=== PATIENT | female | born 1995 | race American Indian/Alaskan Native ===

== ENCOUNTER 2020-05-20 13:35 | Emergency (ER) | payer MEDICAID ==
[2020-05-20 14:11] VITALS: BP 145/79
--- NOTE | 2020-05-20 14:11 | Emergency Department Report ---
ED HPI - General Chief complaint: Vaginal Bleeding Stated complaint: 19 WKS BLEEDING Time Seen by Provider: 05/20/20 13:43 Source: patient Mode of arrival: Ambulatory Limitations: No Limitations - History of Present Illness Initial comments: This is a 24-year-old female that is currently about 18-19 weeks nontoxic, well nourished in appearance, no acute signs of distress presents to the ED with c/o of vaginal bleeding x1 day. Patient stated yesterday she noticed some spotting yesterday and today. Patient denies any abdominal or pelvic pain. Patient denies any vaginal discharge or foul odor. Patient denies any nausea, v omiting, chest pain, shortness of breathe, fever, chills, headache, stiff neck, numbness, tingling. Patient denies any urinary symptoms. Patient denies any allergies or PMH. Patient denies following up with a NUT ORCHARDIST. MD Complaint: vaginal bleeding -: days(s) Radiation: none Severity scale (0 -10): 0 Improves with: none Worsens with: none Associated symptoms: vaginal bleeding. denies: nausea/vomiting, vaginal discharge, abdominal pain, dysuria, headache, vision changes, malaise, dysparuenia, rash, seizure, shortness of breath, syncope, weakness Vaginal bleeding: light :: Yes Pre-fifi care: none - Related Data Previous Rx's Medication Instructions Recorded Last Taken Type Nitrofurantoin Tensas/M-Cryst 100 mg PO Q12HR #14 capsule 05/20/20 Unknown Rx [Macrobid CAP] 21/Iron Fu/Folic Acid 1 each PO DAILY #30 tablet 05/20/20 Unknown Rx [ Complete Caplet] Allergies Allergy/AdvReac Type Severity Reaction Status Date / Time No Known Allergies Allergy Verified 05/20/20 13:41 ED Review of Systems ROS: Stated complaint: 19 WKS BLEEDING Other details as noted in HPI Comment: All other systems reviewed and negative Constitutional: denies: chills, fever Eyes: denies: eye pain, eye discharge, vision change ENT: denies: ear pain, throat pain Respiratory: denies: cough, shortness of breath, wheezing Cardiovascular: denies: chest pain, palpitations Endocrine: no symptoms reported Gastrointestinal: denies: abdominal pain, nausea, diarrhea Genitourinary: abnormal menses. denies: urgency, dysuria, discharge Musculoskeletal: denies: back pain, joint swelling, arthralgia Skin: denies: rash, lesions Neurological: denies: headache, weakness, paresthesias Psychiatric: denies: anxiety, depression Hematological/Lymphatic: denies: easy bleeding, easy bruising ED Past Medical Hx - Social History Smoking Status: Never Smoker Substance Use Type: None - Medications Home Medications: Home Medications Medication Instructions Recorded Confirmed Last Taken Type Nitrofurantoin Tensas/M-Cryst 100 mg PO Q12HR #14 capsule 05/20/20 Unknown Rx [Macrobid CAP] 21/Iron Fu/Folic Acid 1 each PO DAILY #30 tablet 05/20/20 Unknown Rx [ Complete Caplet] ED Physical Exam - General Limitations: No Limitations General appearance: alert, in no apparent distress - Head Head exam: Present: atraumatic, normocephalic - Eye Eye exam: Present: normal appearance - Neck Neck exam: Present: normal inspection, full ROM - Respiratory Respiratory exam: Absent: respiratory distress - Cardiovascular Cardiovascular Exam: Present: regular rate - GI/Abdominal GI/Abdominal exam: Present: soft. Absent: distended, tenderness - Extremities Exam Extremities exam: Present: full ROM - Back Exam Back exam: Present: full ROM - Neurological Exam Neurological exam: Present: alert, oriented X3, normal gait - Psychiatric Psychiatric exam: Present: normal affect, normal mood - Skin Skin exam: Present: warm, dry, intact, normal color. Absent: rash ED Course Vital Signs 05/20/20 13:39 Temperature 98.7 F Pulse Rate 108 H Respiratory 20 Rate Blood Pressure 145/79 O2 Sat by Pulse 98 Oximetry Vital Signs 05/20/20 13:39 Temperature 98.7 F Pulse Rate 108 H Respiratory 20 Rate Blood Pressure 145/79 O2 Sat by Pulse 98 Oximetry - Reevaluation(s) Reevaluation #1: 05/20/20 14:11 Patient is speaking in full sentences with no signs of distress noted. ED Medical Decision Making - Lab Data Result diagrams: 05/20/20 14:16 Lab Results 05/20/20 05/20/20 05/20/20 Range/Units 14:16 14:16 14:41 WBC 9.0 (4.5-11.0) K/mm3 RBC 3.67 (3.65-5.03) M/mm3 Hgb 11.0 (10.1-14.3) gm/dl Hct 31.7 (30.3-42.9) % MCV 86 (79-97) fl MCH 30 (28-32) pg MCHC 35 H (30-34) % RDW 13.7 (13.2-15.2) % Plt Count 283 (140-440) K/mm3 Lymph % (Auto) 28.0 (13.4-35.0) % Tensas % (Auto) 5.6 (0.0-7.3) % Eos % (Auto) 2.3 (0.0-4.3) % Baso % (Auto) 1.0 (0.0-1.8) % Lymph # (Auto) 2.5 (1.2-5.4) K/mm3 Tensas # (Auto) 0.5 (0.0-0.8) K/mm3 Eos # (Auto) 0.2 (0.0-0.4) K/mm3 Baso # (Auto) 0.1 (0.0-0.1) K/mm3 Seg Neutrophils % 63.1 (40.0-70.0) % Seg Neutrophils # 5.7 (1.8-7.7) K/mm3 HCG, Quant 8664 H (0-4) mIU/mL Urine Color (Yellow) Urine Turbidity (Clear) Urine pH (5.0-7.0) Ur Specific Dustin (1.003-1.030) Urine Protein (Negative) mg/dL Urine Glucose (UA) (Negative) mg/dL Urine Ketones (Negative) mg/dL Urine Blood (Negative) Urine Nitrite (Negative) Urine Bilirubin (Negative) Urine Urobilinogen (<2.0) mg/dL Ur Leukocyte Esterase (Negative) Urine WBC (Auto) (0.0-6.0) /HPF Urine RBC (Auto) (0.0-6.0) /HPF U Epithel Cells (Auto) (0-13.0) /HPF Urine Bacteria (Auto) (Negative) /HPF Urine Mucus /HPF Blood Type O POSITIVE 05/20/20 Range/Units Unknown WBC (4.5-11.0) K/mm3 RBC (3.65-5.03) M/mm3 Hgb (10.1-14.3) gm/dl Hct (30.3-42.9) % MCV (79-97) fl MCH (28-32) pg MCHC (30-34) % RDW (13.2-15.2) % Plt Count (140-440) K/mm3 Lymph % (Auto) (13.4-35.0) % Tensas % (Auto) (0.0-7.3) % Eos % (Auto) (0.0-4.3) % Baso % (Auto) (0.0-1.8) % Lymph # (Auto) (1.2-5.4) K/mm3 Tensas # (Auto) (0.0-0.8) K/mm3 Eos # (Auto) (0.0-0.4) K/mm3 Baso # (Auto) (0.0-0.1) K/mm3 Seg Neutrophils % (40.0-70.0) % Seg Neutrophils # (1.8-7.7) K/mm3 HCG, Quant (0-4) mIU/mL Urine Color Yellow (Yellow) Urine Turbidity Slightly-cloudy (Clear) Urine pH 6.0 (5.0-7.0) Ur Specific Dustin 1.028 (1.003-1.030) Urine Protein 30 mg/dl (Negative) mg/dL Urine Glucose (UA) Neg (Negative) mg/dL Urine Ketones Neg (Negative) mg/dL Urine Blood Mod (Negative) Urine Nitrite Neg (Negative) Urine Bilirubin Neg (Negative) Urine Urobilinogen < 2.0 (<2.0) mg/dL Ur Leukocyte Esterase Mod (Negative) Urine WBC (Auto) 19.0 H (0.0-6.0) /HPF Urine RBC (Auto) 43.0 (0.0-6.0) /HPF U Epithel Cells (Auto) 5.0 (0-13.0) /HPF Urine Bacteria (Auto) 1+ (Negative) /HPF Urine Mucus 2+ /HPF Blood Type - Radiology Data Referring Physician: DEYSI SINCLAIR Patient Name: AMANDA MCKEON Date of : 1995 Sex: Female Report Date: 2020-05-20 Report Status: Finalized [facility] [address] [place] [address] Ultrasound Report Signed Patient: AMANDA MCKEON MR#: [id number] : 1995 Acct:[id number] Age/Sex: 24 / F ADM Date: 05/20/20 Loc: ED [facility] [address] Dr: Ordering Physician: DEYSI SINCLAIR NP Date of Service: 05/20/20 Procedure(s): US OB >= 14 weeks Fetus Accession Number(s): [id number] cc: DEYSI SINCLAIR NP ULTRASOUND OBSTETRIC COMPLETE INDICATION / CLINICAL INFORMATION: vaginal bleeding. Clinical Gestational Age (GA) in weeks.days: 19.3 TECHNIQUE: Transabdominal. COMPARISON: None available. FINDINGS: NUMBER: Single PRESENTATION: breech PLACENTA: anterofundal and free of the os. MATERNAL ADNEXA: No significant abnormality. AMNIOTIC FLUID VOLUME: normal AMNIOTIC FLUID INDEX (SUREKHA) in cm (if measured): Not measured ANATOMY: Detailed anatomy assessment was not performed. MEASUREMENTS: - Biparietal Diameter = 3.4 cm = 16.4 weeks.days - Head Circumference = 13.0 cm = 16.4 weeks.days - Abdominal Circumference = 10.4 cm = 16.3 weeks.days - Femur Length = 1.8 cm = 15.3 weeks.days - Estimated Weight (in grams, if calculated): 142 - Heart Rate (beats per minute): 159 ADDITIONAL FINDINGS: Cervical length measures 3.2 cm. PERCENTILE ESTIMATED WEIGHT (if calculated): Not calculated AVERA GE ULTRASOUND AGE (AUA) in weeks.days = 16.2 IMPRESSION: 1. Single intrauterine with AUA of 16.2 weeks.days 2. No significant sonographic abnormality. Signer Name: Cresencio Pimentel MD Signed: 05/20/2020 2:56 PM Workstation Name: [id number] Transcribed By: ALEC Dictated By: Cresencio Pimentel MD Electronically Authenticated By: Cresencio Pimentel MD Signed Date/Time: 05/20/201455 DD/ 53 TD/TT: - Medical Decision Making This is a 24-year-old female presents with threatened miscarriage and UTI. Patient is stable and was examined by me. Normal abdominal exam. US OB obtained and dictated by the radiologist. Ua obtained. Quantative serum test obtained. Patient notified of the US report with no questions noted by the patient. Patient was instructed f/u with NUT ORCHARDIST in 3-5 days. RH factor positive. Labs within normal limits. Patient be treated with Macrobid. At time of discharge, the patient does not seem toxic or ill in appearance. No acute signs of distress noted. Patient agrees to discharge treatment plan of care. No further questions noted by the patient. Critical care attestation.: If time is entered above; I have spent that time in minutes in the direct care of this critically ill patient, excluding procedure time. ED Disposition Clinical Impression: Threatened miscarriage UTI (urinary tract infection) Qualifiers: Urinary tract infection type: acute cystitis Hematuria presence: with hematuria Qualified Code(s): N30.01 - Acute cystitis with hematuria Disposition: TO HOME OR SELFCARE Is pt being admited?: No Does the pt Need Aspirin: No Condition: Stable Instructions: Urinary Tract Infection, Adult, Threatened Miscarriage, [id number] Additional Instructions: Follow-up with a NUT ORCHARDIST doctor in 3-5 days or if symptoms worsen and continue return to emergency room as soon as possible. Prescriptions: Nitrofurantoin Tensas/M-Cryst [Macrobid CAP] 100 mg PO Q12HR #14 capsule 21/Iron Fu/Folic Acid [ Complete Caplet] 1 each PO DAILY #30 tablet Referrals: [facility] [Referring] - 3-5 Days [facility] [Provider Group] - 3-5 Days [facility] [Provider Group] - 3-5 Days Forms: Work/School Release Form(ED) Time of Disposition: 15:38
[2020-05-20 14:45] LABS: Basophils # (Auto) 0.1 K/mm3 (0.0-0.1); Eosinophils # (Auto) 0.2 K/mm3 (0.0-0.4); Eosinophils % (Auto) 2.3 % (0.0-4.3); Hematocrit 31.7 % (30.3-42.9); Lymphocytes # (Auto) 2.5 K/mm3 (1.2-5.4); Mean Corpuscular HGB Conc 35 % (30-34); Mean Corpuscular Volume 86 fl (79-97); Monocytes # (Auto) 0.5 K/mm3 (0.0-0.8); Monocytes % (Auto) 5.6 % (0.0-7.3); Platelet Count 283 K/mm3 (140-440); Red Blood Count 3.67 M/mm3 (3.65-5.03); Red Cell Distribution Width 13.7 % (13.2-15.2)
[2020-05-20 14:54] LABS: Bacteria,Urine 1+ /HPF (Negative); Bilirubin,Urine NEG (Negative); Blood,Urine MOD (Negative); Color,Urine Yellow (Yellow); Mucus,Urine 2+ /HPF; Urobilinogen,Urine < 2.0 mg/dL (<2.0)
--- NOTE | 2020-05-20 15:01 | Ultrasound Report ---
ULTRASOUND OBSTETRIC COMPLETE INDICATION / CLINICAL INFORMATION: vaginal bleeding. Clinical Gestational Age (GA) in weeks.days: 19.3 TECHNIQUE: Transabdominal. COMPARISON: None available. FINDINGS: NUMBER: Single PRESENTATION: breech PLACENTA: anterofundal and free of the os. MATERNAL ADNEXA: No significant abnormality. AMNIOTIC FLUID VOLUME: normal AMNIOTIC FLUID INDEX (SUREKHA) in cm (if measured): Not measured ANATOMY: Detailed anatomy assessment was not performed. MEASUREMENTS: - Biparietal Diameter = 3.4 cm = 16.4 weeks.days - Head Circumference = 13.0 cm = 16.4 weeks.days - Abdominal Circumference = 10.4 cm = 16.3 weeks.days - Femur Length = 1.8 cm = 15.3 weeks.days - Estimated Weight (in grams, if calculated): 142 - Heart Rate (beats per minute): 159 ADDITIONAL FINDINGS: Cervical length measures 3.2 cm. PERCENTILE ESTIMATED WEIGHT (if calculated): Not calculated AVERAGE ULTRASOUND AGE (AUA) in weeks.days = 16.2 IMPRESSION: 1. Single intrauterine with AUA of 16.2 weeks.days 2. No significant sonographic abnormality. Signer Name: Cresencio Pimentel MD Signed: 05/20/2020 2:56 PM Workstation Name: [id number]
== END 2020-05-20 17:27 | disposition home or self-care (01) ==
LOC: ED 13:35
DX: O20.0 Threatened abortion (principal); O23.42 Unspecified infection of urinary tract in pregnancy, second trimester; Z79.899 Other long term (current) drug therapy; Z3A.19 19 weeks gestation of pregnancy
CPT/HCPCS: 36415; 76805; 81001; 84702; 85025; 86900; 86901; 87086